=== PATIENT | female | born 1975 | race Caucasian/White ===

== ENCOUNTER 2022-12-19 14:52 | Observation (INO) | payer BC ==
[2022-12-19] MEDS ORDERED: SODIUM CHLORIDE 0.9% 1,000 ML IV STA (15:24)
[2022-12-19 16:00] LABS: ALT 21 U/L (4-34); AST 28 U/L (14-36); African American GFR (CKD) >90 (>60 ml/min/1.73 sqM); Albumin 4.2 g/dL (3.5-5.0); Anion Gap 10 mmol/L; Blood Urea Nitrogen 11 mg/dL (7-17); Calcium 9.1 mg/dL (8.4-10.2); Carbon Dioxide 22 mmol/L (22-30); Chloride 103 mmol/L (98-107); Glucose 420 mg/dL (74-99); Magnesium 1.8 mg/dL (1.6-2.3); Non-African American GFR(CKD) >90 (>60 ml/min/1.73 sqM); Phosphorus 3.3 mg/dL (2.5-4.5); Potassium 4.9 mmol/L (3.5-5.1); Sodium 135 mmol/L (137-145); Total Bilirubin 0.6 mg/dL (0.2-1.3); Total Protein 7.9 g/dL (6.3-8.2)
[2022-12-19 16:09] LABS: VBG PH 7.43 (7.31-7.41)
[2022-12-19 16:11] LABS: Basophils % (A) 0 %; Eosinophils # (A) 0.4 k/uL (0-0.7); Eosinophils % (A) 5 %; HCT 44.7 % (34.0-46.0); HGB 14.9 gm/dL (11.4-16.0); Lymphocytes # (A) 1.9 k/uL (1.0-4.8); Lymphocytes % (A) 25 %; MCH 25.5 pg (25.0-35.0); MCHC 33.2 g/dL (31.0-37.0); MCV 76.8 fL (80.0-100.0); Mean Platelet Volume 7.5; Monocytes # (A) 0.3 k/uL (0-1.0); Monocytes % (A) 4 %; Neutrophils % (A) 64 %; Platelet Count 299 k/uL (150-450); RBC 5.83 m/uL (3.80-5.40); RDW 13.6 % (11.5-15.5); WBC 7.8 k/uL (3.8-10.6)
[2022-12-19 16:20] LABS: Appearance,Urine Clear (Clear); Bilirubin,Urine Negative (Negative); Blood,Urine Negative (Negative); Color,Urine Light Yellow; Glucose,Urine (UA) 4+ (Negative); Ketones,Urine Negative (Negative); Leukocyte Esterase,Urine Negative (Negative); Nitrite,Urine Negative (Negative); PH, Urine 5.5 (5.0-8.0); Protein,Urine Negative (Negative); Specific Gravity,Urine 1.042 (1.001-1.035); Urobilinogen,Urine <2.0 mg/dL (<2.0)
[2022-12-19 16:21] LABS: Alkaline Phosphatase 65 U/L (38-126)
[2022-12-19] MEDS ORDERED: FLUCONAZOLE 150 MG TAB PO STA (16:36)
[2022-12-19] MEDS ORDERED: INSULIN REGULAR 100 UNIT/ML VIAL (IV) IV ONE ×2 (16:48→17:39)
--- NOTE | 2022-12-19 16:50 | ED ---
Recheck HPI - General Chief Complaint: Recheck/Abnormal Lab/Rx Stated Complaint: Recheck Time Seen by Provider: 12/19/22 15:15 Source: patient, RN notes reviewed Mode of arrival: ambulatory Limitations: no limitations - History of Present Illness Initial Comments: This is a 47-year-old female who presents to the emergency department for elevated blood sugar. States that she went to urgent care today for a yeast infection. When her urine was checked, it was found to have glucose in it. They subsequently checked her blood sugar, which was found to be 461, followed by her A1c, which was 13.9. She has never been diagnosed with diabetes, however she has not had any blood work done in several years. She does have problems with frequent yeast infections, and states that she has white discharge, pain, and swelling to the vulvar area. This has been present for 1-2 days. Denies any increased urination but states that she does seem thirsty quite a lot. She does not currently have a primary care provider. Denies any fevers, chills, sore throat, cough, dyspnea, chest pain, palpitations, abdominal pain, nausea, vomiting, diarrhea, back pain, or headaches. MD Complaint: abnormal lab - Related Data Home Medications Medication Instructions Recorded Confirmed Cetirizine HCl [Zyrtec] 10 mg PO HS 12/19/22 12/19/22 Docusate [Colace] 100 mg PO HS 12/19/22 12/19/22 L.acidoph,Paracasei, B.lactis 1 cap PO HS 12/19/22 12/19/22 [Probiotic] Naproxen Sodium [Aleve] 220 mg PO HS 12/19/22 12/19/22 Omeprazole Magnesium [PriLOSEC OTC] 20 mg PO HS 12/19/22 12/19/22 Otc Sleep Aid (Unknown) 1 cap PO HS 12/19/22 12/19/22 Allergies Allergy/AdvReac Type Severity Reaction Status Date / Time amoxicillin [From Augmentin] Allergy Unknown Verified 12/19/22 16:33 clavulanic acid Allergy Unknown Verified 12/19/22 16:33 [From Augmentin] latex Allergy Unknown Verified 12/19/22 16:33 Review of Systems ROS Statement: Those systems with pertinent positive or pertinent negative responses have been documented in the HPI. ROS Other: All systems not noted in ROS Statement are negative. Past Medical History Past Medical History: GERD/Reflux History of Any Multi-Drug Resistant Organisms: None Reported Past Surgical History: Breast Surgery, Tonsillectomy Additional Past Surgical History / Comment(s): D&C Past Psychological History: No Psychological Hx Reported Smoking Status: Never smoker Past Alcohol Use History: None Reported Past Drug Use History: None Reported General Exam Limitations: no limitations General appearance: alert, in no apparent distress Head exam: Present: atraumatic, normocephalic, normal inspection Respiratory exam: Present: normal lung sounds bilaterally. Absent: respiratory distress, wheezes, rales, rhonchi, stridor Cardiovascular Exam: Present: regular rate, normal rhythm, normal heart sounds. Absent: systolic murmur, diastolic murmur, rubs, gallop, clicks Neurological exam: Present: alert, oriented X3, CN II-XII intact Psychiatric exam: Present: normal affect, normal mood Skin exam: Present: warm, dry, intact, normal color. Absent: rash Course Vital Signs 12/19/22 14:59 Temperature 98.1 F Pulse Rate 104 H Respiratory 18 Rate Blood Pressure 157/99 O2 Sat by Pulse 97 Oximetry Medical Decision Making - Medical Decision Making This is a 47-year-old female who presents to the emergency department for hyperglycemia. Was pt. sent in by a medical professional or institution? @ -Urgent Care Did you speak to anyone other than the patient for history? @ -No Did you review nursing and triage notes? @ -Yes, and I agree, it is accurate with regards to the patient's symptoms. Were old charts reviewed? @ -No Differential Diagnosis? @ -Not applicable EKG interpreted by me (3pts min.)? @ -Not obtained X-rays interpreted by me (1pt min.)? @ -Not obtained CT interpreted by me (1pt min.)? @ -Not obtained U/S interpreted by me (1pt. min.)? @ -Not obtained What testing was considered but not performed? (CT, X-rays, U/S, labs)? Why? @ -None What meds were considered but not given? Why? @ -None Did you discuss the management of the patient with other professionals? @ -Yes, Dr. Duarte who accepts the patient for admission. Did you reconcile home meds? @ -No Was smoking cessation discussed for >3mins.? @ -No Was critical care preformed (if so, how long)? @ -No Were there social determinants of health that impacted care today? How? (Homelessness, low income, unemployed, alcoholism, drug addiction, transportation, low edu. Level, literacy, decrease access to med. care, [facility], rehab)? @ -No Was there de-escalation of care discussed even if they declined? (Discuss DNR or withdrawal of care, Hospice)? @ -No What co-morbidities impacted this encounter? (DM, HTN, Smoking, COPD, CAD, Ca ncer, CVA, Hep., AIDS, mental health diagnosis, sleep apnea, morbid obesity)? @ -Morbid obesity Was patient admitted / discharged? @ -Admitted. Lab work obtained revealing a blood sugar of 420. Patient's lab work does not suggest DKA. Urine ketones are negative and the pH is 7.43. She was given a liter bolus of IV fluids and 8 units of insulin initially. Blood sugar reduced to 341. She was subsequently given another 8 units of insulin and sugar reduced to 322. She was also given a dose of Diflucan for the yeast infection. Case discussed with Dr. Campos, who advised admission given that the sugar remains at 322 after 16 units of insulin, and because the patient does not have a primary care provider for close follow-up. Patient admitted to medicine for further management of new onset diabetes. Undiagnosed new problem with uncertain prognosis? @ -None Drug Therapy requiring intensive monitoring for toxicity (Heparin, Nitro, Insulin, Cardizem)? @ -None Were any procedures done? @ -None Diagnosis/symptom? @ -New onset diabetes mellitus Acute, or Chronic, or Acute on Chronic? @ -Acute Uncomplicated (without systemic symptoms) or Complicated (systemic symptoms)? @ -Complicated Side effects of treatment? @ -None Exacerbation, Progression, or Severe Exacerbation] @ -Not applicable Poses a threat to life or bodily function? @ -Yes This case was discussed in detail with the attending ED physician, Dr. Campos. Presentation, findings, and treatment plan discussed in detail as well. - Lab Data Result diagrams: 12/19/22 15:49 12/19/22 15:30 Lab Results 12/19/22 12/19/22 12/19/22 Range/Units 15:30 15:30 15:30 WBC (3.8-10.6) k/uL RBC (3.80-5.40) m/uL Hgb (11.4-16.0) gm/dL Hct (34.0-46.0) % MCV (80.0-100.0) fL MCH (25.0-35.0) pg MCHC (31.0-37.0) g/dL RDW (11.5-15.5) % Plt Count (150-450) k/uL MPV Neutrophils % % Lymphocytes % % Monocytes % % Eosinophils % % Basophils % % Neutrophils # (1.3-7.7) k/uL Lymphocytes # (1.0-4.8) k/uL Monocytes # (0-1.0) k/uL Eosinophils # (0-0.7) k/uL Basophils # (0-0.2) k/uL VBG pH (7.31-7.41) VBG pCO2 (37-51) mmHg VBG HCO3 (24-28) mmol/L Sodium 135 L (137-145) mmol/L Potassium 4.9 (3.5-5.1) mmol/L Chloride 103 (98-107) mmol/L Carbon Dioxide 22 (22-30) mmol/L Anion Gap 10 mmol/L BUN 11 (7-17) mg/dL Creatinine 0.55 (0.52-1.04) mg/dL Est GFR (CKD-EPI)AfAm >90 (>60 ml/min/1.73 sqM) Est GFR (CKD-EPI)NonAf >90 (>60 ml/min/1.73 sqM) Glucose 420 H (74-99) mg/dL POC Glucose (mg/dL) (70-110) mg/dL POC Glu Fine Craft Artist ID Plasma Lactic Acid Jose 1.2 (0.7-2.0) mmol/L Calcium 9.1 (8.4-10.2) mg/dL Phosphorus 3.3 (2.5-4.5) mg/dL Magnesium 1.8 (1.6-2.3) mg/dL Total Bilirubin 0.6 (0.2-1.3) mg/dL AST 28 (14-36) U/L ALT 21 (4-34) U/L Alkaline Phosphatase 65 (38-126) U/L Total Protein 7.9 (6.3-8.2) g/dL Albumin 4.2 (3.5-5.0) g/dL Urine Color Light Yellow Urine Appearance Clear (Clear) Urine pH 5.5 (5.0-8.0) Ur Specific [place] 1.042 H (1.001-1.035) Urine Protein Negative (Negative) Urine Glucose (UA) 4+ H (Negative) Urine Ketones Negative (Negative) Urine Blood Negative (Negative) Urine Nitrite Negative (Negative) Urine Bilirubin Negative (Negative) Urine Urobilinogen <2.0 (<2.0) mg/dL Ur Leukocyte Esterase Negative (Negative) 12/19/22 12/19/22 12/19/22 Range/Units 15:49 15:49 17:38 WBC 7.8 (3.8-10.6) k/uL RBC 5.83 H (3.80-5.40) m/uL Hgb 14.9 (11.4-16.0) gm/dL Hct 44.7 (34.0-46.0) % MCV 76.8 L (80.0-100.0) fL MCH 25.5 (25.0-35.0) pg MCHC 33.2 (31.0-37.0) g/dL RDW 13.6 (11.5-15.5) % Plt Count 299 (150-450) k/uL MPV 7.5 Neutrophils % 64 % Lymphocytes % 25 % Monocytes % 4 % Eosinophils % 5 % Basophils % 0 % Neutrophils # 5.0 (1.3-7.7) k/uL Lymphocytes # 1.9 (1.0-4.8) k/uL Monocytes # 0.3 (0-1.0) k/uL Eosinophils # 0.4 (0-0.7) k/uL Basophils # 0.0 (0-0.2) k/uL VBG pH 7.43 H (7.31-7.41) VBG pCO2 31 L (37-51) mmHg VBG HCO3 20 L (24-28) mmol/L Sodium (137-145) mmol/L Potassium (3.5-5.1) mmol/L Chloride (98-107) mmol/L Carbon Dioxide (22-30) mmol/L Anion Gap mmol/L BUN (7-17) mg/dL Creatinine (0.52-1.04) mg/dL Est GFR (CKD-EPI)AfAm (>60 ml/min/1.73 sqM) Est GFR (CKD-EPI)NonAf (>60 ml/min/1.73 sqM) Glucose (74-99) mg/dL POC Glucose (mg/dL) 341 H (70-110) mg/dL POC Glu Fine Craft Artist ID December, Plasma Lactic Acid Jose (0.7-2.0) mmol/L Calcium (8.4-10.2) mg/dL Phosphorus (2.5-4.5) mg/dL Magnesium (1.6-2.3) mg/dL Total Bilirubin (0.2-1.3) mg/dL AST (14-36) U/L ALT (4-34) U/L Alkaline Phosphatase (38-126) U/L Total Protein (6.3-8.2) g/dL Albumin (3.5-5.0) g/dL Urine Color Urine Appearance (Clear) Urine pH (5.0-8.0) Ur Specific [place] (1.001-1.035) Urine Protein (Negative) Urine Glucose (UA) (Negative) Urine Ketones (Negative) Urine Blood (Negative) Urine Nitrite (Negative) Urine Bilirubin (Negative) Urine Urobilinogen (<2.0) mg/dL Ur Leukocyte Esterase (Negative) 12/19/22 Range/Units 18:27 WBC (3.8-10.6) k/uL RBC (3.80-5.40) m/uL Hgb (11.4-16.0) gm/dL Hct (34.0-46.0) % MCV (80.0-100.0) fL MCH (25.0-35.0) pg MCHC (31.0-37.0) g/dL RDW (11.5-15.5) % Plt Count (150-450) k/uL MPV Neutrophils % % Lymphocytes % % Monocytes % % Eosinophils % % Basophils % % Neutrophils # (1.3-7.7) k/uL Lymphocytes # (1.0-4.8) k/uL Monocytes # (0-1.0) k/uL Eosinophils # (0-0.7) k/uL Basophils # (0-0.2) k/uL VBG pH (7.31-7.41) VBG pCO2 (37-51) mmHg VBG HCO3 (24-28) mmol/L Sodium (137-145) mmol/L Potassium (3.5-5.1) mmol/L Chloride (98-107) mmol/L Carbon Dioxide (22-30) mmol/L Anion Gap mmol/L BUN (7-17) mg/dL Creatinine (0.52-1.04) mg/dL Est GFR (CKD-EPI)AfAm (>60 ml/min/1.73 sqM) Est GFR (CKD-EPI)NonAf (>60 ml/min/1.73 sqM) Glucose (74-99) mg/dL POC Glucose (mg/dL) 322 H (70-110) mg/dL POC Glu Fine Craft Artist ID December, Plasma Lactic Acid Jose (0.7-2.0) mmol/L Calcium (8.4-10.2) mg/dL Phosphorus (2.5-4.5) mg/dL Magnesium (1.6-2.3) mg/dL Total Bilirubin (0.2-1.3) mg/dL AST (14-36) U/L ALT (4-34) U/L Alkaline Phosphatase (38-126) U/L Total Protein (6.3-8.2) g/dL Albumin (3.5-5.0) g/dL Urine Color Urine Appearance (Clear) Urine pH (5.0-8.0) Ur Specific [place] (1.001-1.035) Urine Protein (Negative) Urine Glucose (UA) (Negative) Urine Ketones (Negative) Urine Blood (Negative) Urine Nitrite (Negative) Urine Bilirubin (Negative) Urine Urobilinogen (<2.0) mg/dL Ur Leukocyte Esterase (Negative) Disposition Clinical Impression: New onset type 2 diabetes mellitus, Vaginal yeast infection Disposition: ADMITTED IP TO THIS HOSP Referrals: Huseyin Wong MD [REFERRING] - 1-2 days (Contact regarding appointment with automotive engineering teacher) None,Stated [Primary Care Provider] - 1-2 days Forms: [facility] PCPs
[2022-12-19 17:39] LABS: Glucose,Whole Blood 341 mg/dL (70-110)
[2022-12-19 18:28] LABS: Glucose,Whole Blood 322 mg/dL (70-110)
[2022-12-19] MEDS ORDERED: ACETAMINOPHEN TAB 325 MG TAB PO PRN (18:37)
[2022-12-19] MEDS ORDERED: NALOXONE 0.4 MG/ML 1 ML VIAL IV PRN (18:37)
[2022-12-19] MEDS ORDERED: ONDANSETRON 4 MG/2 ML VIAL IVP PRN (18:37)
[2022-12-19] MEDS ORDERED: MELATONIN 3 MG TABLET PO PRN (18:50)
[2022-12-19] MEDS ORDERED: IBUPROFEN 600 MG TAB PO PRN (18:52)
[2022-12-19 21:27] LABS: Glucose,Whole Blood 288 mg/dL (70-110)
[2022-12-19] MEDS: HYDROcodone/APAP 5-325MG 1 EACH TAB PO PRN (22:36)
[2022-12-19] MEDS: PANTOPRAZOLE 40 MG TABLET PO SCH (22:39)
[2022-12-19] MEDS: DOCUSATE 100 MG CAP PO SCH (22:39)
[2022-12-19] MEDS: LACTOBACILLUS ACIDOPH & BULGAR 1 EACH PACKET PO SCH (23:43)
[2022-12-19] MEDS: NAPROXEN 250 MG TAB PO SCH (23:44)
[2022-12-19] MEDS: LORATADINE 10 MG TAB PO SCH (23:44)
--- NOTE | 2022-12-20 00:15 | P.HPIM ---
History of Present Illness H&P Date: 12/19/22 The patient is a 47-year-old female with no known PMH who presents to the emergency room from an urgent care due to concern for newly diagnosed diabetes mellitus. The patient reports that she was seen at the urgent care earlier today due to persistent yeast infections. While there, UA revealed significant glucose, with CBG 461 and A1c 13.9. The patient reports that she has not seen a physician in more than 5 years. She also reports feeling fatigued most of the day and burning and pain in both her feet especially at night. In the emergency room, laboratory evaluation revealed a glucose of 420, sodium 135, lactic acid 1.2, and a UA with 4+ glucose and acetone negative. ED documentation reviewed and case discussed with ED provider. Review of systems: Pertinent positives and negatives as discussed in HPI, a complete review of systems was performed and all other systems are negative. Physical examination: Vital signs reviewed General: non toxic, no distress, appears at stated age, morbidly obese Derm: no unusual rashes/lesions, warm Head: atraumatic, normocephalic, symmetric Eyes: EOMI, no lid lag, anicteric sclera, pupils equal round reactive to light ENT: Nose and ears atraumatic Neck: No cervical lymphadenopathy, trachea midline, supple Mouth: no lip lesion, mucus membranes moist Cardiovascular: S1S2 reg, no murmur, positive dorsalis pedis pulse bilateral, no edema Lungs: CTA bilateral, no rhonchi, no rales, no accessory muscle use Abdominal: soft, nontender to palpation, no guarding Ext: muscle strength 5 out of 5 in all 4 extremities grossly, no gross muscle atrophy, no contractures, Neuro: CN II-XI grossly intact, no gross focal neuro deficits Psych: Alert, oriented, appropriate affect Assessment: Newly diagnosed diabetes mellitus Imaging: None performed Data Review: Laboratory evaluation revealed a glucose of 420, sodium 135, lactic acid 1.2, and a UA with 4+ glucose and acetone negative Plan: Start Levemir 10 units daily at bedtime with insulin sliding scale and blood glucose monitoring Patient will need diabetes education CAR[employer]AN consult for yeast infection DVT prophylaxis: Heparin subcu The patient is admitted with an anticipated less than 2 midnight stay for evaluation of Type 2 dm CODE STATUS: Full Code Discussed with: Patient Anticipated discharge place: Home Past Medical History Past Medical History: GERD/Reflux History of Any Multi-Drug Resistant Organisms: None Reported Past Surgical History: Breast Surgery, Tonsillectomy Additional Past Surgical History / Comment(s): D&C Past Psychological History: No Psychological Hx Reported Smoking Status: Never smoker Past Alcohol Use History: None Reported Past Drug Use History: None Reported Medications and Allergies Home Medications Medication Instructions Recorded Confirmed Type Cetirizine HCl [Zyrtec] 10 mg PO HS 12/19/22 12/19/22 History Docusate [Colace] 100 mg PO HS 12/19/22 12/19/22 History L.acidoph,Paracasei, B.lactis 1 cap PO HS 12/19/22 12/19/22 History [Probiotic] Naproxen Sodium [Aleve] 220 mg PO HS 12/19/22 12/19/22 History Omeprazole Magnesium [PriLOSEC OTC] 20 mg PO HS 12/19/22 12/19/22 History Otc Sleep Aid (Unknown) 1 cap PO HS 12/19/22 12/19/22 History Allergies Allergy/AdvReac Type Severity Reaction Status Date / Time amoxicillin [From Augmentin] Allergy Unknown Verified 12/19/22 16:33 clavulanic acid Allergy Unknown Verified 12/19/22 16:33 [From Augmentin] latex Allergy Unknown Verified 12/19/22 16:33 Physical Exam Vitals: Vital Signs Temp Pulse Pulse Resp BP BP Pulse Ox 12/19/22 21:32 98.5 F 93 18 147/97 12/19/22 18:48 96 18 150/92 98 12/19/22 14:59 98.1 F 104 H 18 157/99 97 Intake and Output 12/19/22 12/19/22 12/20/22 14:59 22:59 06:59 Other: Weight 142.882 kg Results CBC & Chem 7: 12/19/22 15:49 12/19/22 15:30 Labs: Abnormal Lab Results - Last 24 Hours (Table) 12/19/22 12/19/22 12/19/22 Range/Units 15:30 15:30 15:49 RBC (3.80-5.40) m/uL MCV (80.0-100.0) fL VBG pH 7.43 H (7.31-7.41) VBG pCO2 31 L (37-51) mmHg VBG HCO3 20 L (24-28) mmol/L Sodium 135 L (137-145) mmol/L Glucose 420 H (74-99) mg/dL POC Glucose (mg/dL) (70-110) mg/dL Ur Specific [place] 1.042 H (1.001-1.035) Urine Glucose (UA) 4+ H (Negative) 12/19/22 12/19/22 12/19/22 Range/Units 15:49 17:38 18:27 RBC 5.83 H (3.80-5.40) m/uL MCV 76.8 L (80.0-100.0) fL VBG pH (7.31-7.41) VBG pCO2 (37-51) mmHg VBG HCO3 (24-28) mmol/L Sodium (137-145) mmol/L Glucose (74-99) mg/dL POC Glucose (mg/dL) 341 H 322 H (70-110) mg/dL Ur Specific [place] (1.001-1.035) Urine Glucose (UA) (Negative) 12/19/22 Range/Units 21:26 RBC (3.80-5.40) m/uL MCV (80.0-100.0) fL VBG pH (7.31-7.41) VBG pCO2 (37-51) mmHg VBG HCO3 (24-28) mmol/L Sodium (137-145) mmol/L Glucose (74-99) mg/dL POC Glucose (mg/dL) 288 H (70-110) mg/dL Ur Specific [place] (1.001-1.035) Urine Glucose (UA) (Negative)
[2022-12-20] MEDS: INSULIN DETEMIR (LEVEMIR) 100 UNIT/ML SYR SQ SCH ×2 (01:26→20:36)
[2022-12-20 02:27] LABS: Chol/HDL Ratio 6.65 Ratio; LDL Cholesterol,Calculated 154.1 mg/dL (0.0-131.0)
[2022-12-20 06:17] LABS: Glucose,Whole Blood 266 mg/dL (70-110)
[2022-12-20] MEDS: INSULIN ASPART (NovoLOG) 100 UNIT/ML VIAL SQ SCH ×5 (06:33→21:21)
[2022-12-20] MEDS: HEPARIN SODIUM,PORCINE/PF 5,000 UNIT/0.5 ML SYRINGE SQ SCH ×3 (08:14→23:07)
[2022-12-20] MEDS: HYDROcodone/APAP 5-325MG 1 EACH TAB PO PRN ×3 (08:23→20:36)
[2022-12-20] MEDS ORDERED: VITS A & D-WHITE PET-LANOLIN 5 GM OINT.PACK TOPICAL ONE (09:06)
[2022-12-20 09:30] LABS: African American GFR (CKD) >90 (>60 ml/min/1.73 sqM); Anion Gap 8 mmol/L; Blood Urea Nitrogen 11 mg/dL (7-17); Calcium 8.5 mg/dL (8.4-10.2); Carbon Dioxide 22 mmol/L (22-30); Chloride 105 mmol/L (98-107); Glucose 265 mg/dL (74-99); Magnesium 1.7 mg/dL (1.6-2.3); Non-African American GFR(CKD) >90 (>60 ml/min/1.73 sqM); Potassium 4.3 mmol/L (3.5-5.1); Sodium 135 mmol/L (137-145)
--- NOTE | 2022-12-20 09:45 | P.OBCN ---
History of Present Illness Consult date: 12/20/22 Requesting physician: Festus Enciso Reason for consult: other (Yeast infection) Chief complaint: Vulvar yeast infection History of present illness: This is a 47 y.o. female, 0, who presented to ER with complaints of vaginal burning, itching, irritation and new onset of urinary incontinence. She was newly diagnosed with diabetes and is currently on insulin. She states she has been having yeast infection symptoms since about June when she went to an urgent care and was given Diflucan. She states symptoms improved for about a week and then have continually returned. She has used Monistat with some relief, but symptoms return a few days after finishing treatment. She was given 1 dose of fluconazole yesterday on admission. She has not noticed much relief yet, but she's not having the incontinence anymore. Blood sugar on admission was 460 and is now down to 260 today. 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 Menses are currently lasting 3-4 days and less heavy than they used to be. States she has always had irregular cycles and has sometimes gone up to 2 years without a period. She has had at least 4 D&Cs for irregular bleeding and thickened endometrial lining probably at least 10 years ago. She thinks her last pap was about 6 year ago and was normal. OB Hx: G0. Review of Systems Constitutional: Denies chills, Denies fever Genitourinary: Reports dysuria (pain when urine hits skin), Reports genital sores (cracks in skin), Reports mixed incontinence, Reports vaginal itching Past Medical History Past Medical History: GERD/Reflux Additional Past Medical History / Comment(s): PCOS History of Any Multi-Drug Resistant Organisms: None Reported Past Surgical History: Breast Surgery (I&D for bad infection), Tonsillectomy Additional Past Surgical History / Comment(s): D&C x 4 Past Psychological History: No Psychological Hx Reported Smoking Status: Never smoker Past Alcohol Use History: Rare Past Drug Use History: None Reported Medications and Allergies Home Medications Medication Instructions Recorded Confirmed Type Cetirizine HCl [Zyrtec] 10 mg PO HS 12/19/22 12/19/22 History Docusate [Colace] 100 mg PO HS 12/19/22 12/19/22 History L.acidoph,Paracasei, B.lactis 1 cap PO HS 12/19/22 12/19/22 History [Probiotic] Naproxen Sodium [Aleve] 220 mg PO HS 12/19/22 12/19/22 History Omeprazole Magnesium [PriLOSEC OTC] 20 mg PO HS 12/19/22 12/19/22 History Otc Sleep Aid (Unknown) 1 cap PO HS 12/19/22 12/19/22 History Atorvastatin [Lipitor] 40 mg PO DAILY 30 Days #30 tab 12/20/22 Rx Semaglutide [Rybelsus] 3 mg PO DAILY 30 Days #30 tab 12/20/22 Rx metFORMIN HCL [Glucophage] 500 mg PO BID 30 Days #60 tab 12/20/22 Rx Allergies Allergy/AdvReac Type Severity Reaction Status Date / Time amoxicillin [From Augmentin] Allergy Unknown Verified 12/19/22 16:33 clavulanic acid Allergy Unknown Verified 12/19/22 16:33 [From Augmentin] latex Allergy Unknown Verified 12/19/22 16:33 Exam Osteopathic Statement: *. No significant issues noted on an osteopathic structural exam other than those noted in the History and Physical/Consult. Vital Signs Temp Pulse Pulse Resp BP BP Pulse Ox 12/20/22 06:35 97.7 F 79 16 142/84 97 12/20/22 02:00 97.5 F L 85 17 135/85 98 12/19/22 21:32 98.5 F 93 18 147/97 12/19/22 18:48 96 18 150/92 98 12/19/22 14:59 98.1 F 104 H 18 157/99 97 Intake and Output 12/19/22 12/20/22 12/20/22 22:59 06:59 14:59 Other: # Voids 2 Weight 142.882 kg - OBG Physical Exam Vulva: Swollen, slightly red, inflammed with some cracks in skin creases and perineum, some white discharge Results Result Diagrams: 12/19/22 15:49 12/20/22 08:39 Abnormal Lab Results - Last 24 Hours (Table) 12/19/22 12/19/22 12/19/22 Range/Units 15:30 15:30 15:49 RBC (3.80-5.40) m/uL MCV (80.0-100.0) fL VBG pH 7.43 H (7.31-7.41) VBG pCO2 31 L (37-51) mmHg VBG HCO3 20 L (24-28) mmol/L Sodium 135 L (137-145) mmol/L Glucose 420 H (74-99) mg/dL POC Glucose (mg/dL) (70-110) mg/dL Hemoglobin A1c (0.0-6.0) % Triglycerides (0.00-149.00) mg/dL Cholesterol (0.00-200.00) mg/dL LDL Cholesterol, Calc (0.0-131.0) mg/dL VLDL Cholesterol, Calc (5.00-40.00) mg/dL HDL Cholesterol (40.00-60.00) mg/dL Ur Specific [place] 1.042 H (1.001-1.035) Urine Glucose (UA) 4+ H (Negative) 12/19/22 12/19/22 12/19/22 Range/Units 15:49 15:50 17:38 RBC 5.83 H (3.80-5.40) m/uL MCV 76.8 L (80.0-100.0) fL VBG pH (7.31-7.41) VBG pCO2 (37-51) mmHg VBG HCO3 (24-28) mmol/L Sodium (137-145) mmol/L Glucose (74-99) mg/dL POC Glucose (mg/dL) 341 H (70-110) mg/dL Hemoglobin A1c 13.3 H (0.0-6.0) % Triglycerides (0.00-149.00) mg/dL Cholesterol (0.00-200.00) mg/dL LDL Cholesterol, Calc (0.0-131.0) mg/dL VLDL Cholesterol, Calc (5.00-40.00) mg/dL HDL Cholesterol (40.00-60.00) mg/dL Ur Specific [place] (1.001-1.035) Urine Glucose (UA) (Negative) 12/19/22 12/19/22 12/19/22 Range/Units 18:27 20:27 21:26 RBC (3.80-5.40) m/uL MCV (80.0-100.0) fL VBG pH (7.31-7.41) VBG pCO2 (37-51) mmHg VBG HCO3 (24-28) mmol/L Sodium (137-145) mmol/L Glucose (74-99) mg/dL POC Glucose (mg/dL) 322 H 288 H (70-110) mg/dL Hemoglobin A1c (0.0-6.0) % Triglycerides 266.00 H (0.00-149.00) mg/dL Cholesterol 244.00 H (0.00-200.00) mg/dL LDL Cholesterol, Calc 154.1 H (0.0-131.0) mg/dL VLDL Cholesterol, Calc 53.20 H (5.00-40.00) mg/dL HDL Cholesterol 36.70 L (40.00-60.00) mg/dL Ur Specific [place] (1.001-1.035) Urine Glucose (UA) (Negative) 12/20/22 12/20/22 Range/Units 06:16 08:39 RBC (3.80-5.40) m/uL MCV (80.0-100.0) fL VBG pH (7.31-7.41) VBG pCO2 (37-51) mmHg VBG HCO3 (24-28) mmol/L Sodium 135 L (137-145) mmol/L Glucose 265 H (74-99) mg/dL POC Glucose (mg/dL) 266 H (70-110) mg/dL Hemoglobin A1c (0.0-6.0) % Triglycerides (0.00-149.00) mg/dL Cholesterol (0.00-200.00) mg/dL LDL Cholesterol, Calc (0.0-131.0) mg/dL VLDL Cholesterol, Calc (5.00-40.00) mg/dL HDL Cholesterol (40.00-60.00) mg/dL Ur Specific [place] (1.001-1.035) Urine Glucose (UA) (Negative) Assessment and Plan (1) Vulvovaginal candidiasis Current Visit: Yes Status: Acute Code(s): B37.31 - ACUTE CANDIDIASIS OF VULVA AND VAGINA SNOMED Code(s): 15064969 Plan: I recommended Vitamin A&D ointment or similar to skin cracks to help them heal and prevent burning when she urinates. Will add topical antifungal to external vulva/inner thigh area. Advised we can repeat fluconazole in 3 days if she's still having symptoms. Advised once her sugars are better controlled, her yeast infections should also improve. Discussed importance of good glycemic control to help prevent yeast infections. Thank you for this consultation. I will be out of town starting early tomorrow morning through the holiday weekend. Please contact my office for on-call physician if any further intervention needed.
[2022-12-20] MEDS: MICONAZOLE NITRATE 2% CREAM 14 GM TUBE TOPICAL SCH ×2 (09:48→21:22)
[2022-12-20] MEDS: ATORVASTATIN 40 MG TAB PO SCH (09:48)
[2022-12-20 11:16] LABS: Glucose,Whole Blood 231 mg/dL (70-110)
[2022-12-20 15:57] VITALS: BMI 47.9
[2022-12-20 16:40] LABS: Glucose,Whole Blood 218 mg/dL (70-110)
[2022-12-20] MEDS ORDERED: ASPIRIN-ACET-CAFF 250-250-65MG 1 EACH TAB PO STA (17:14)
[2022-12-20] MEDS ORDERED: PROCHLORPERAZINE INJ 10 MG/2 ML VIAL IVP STA (17:15)
[2022-12-20] MEDS ORDERED: KETOROLAC 15 MG/ML 1 ML VIAL IVP STA (17:15)
[2022-12-20] MEDS ORDERED: diphenhydrAMINE 50 MG/ML 1 ML VIAL IVP STA (17:15)
--- NOTE | 2022-12-20 17:32 | P.PN ---
Subjective Progress Note Date: 12/20/22 Hospital course: Patient is a very pleasant 47-year-old female with no previous known past medical history. She presented to the emergency department from urgent care secondary to concerns of newly diagnosed diabetes mellitus. Patient reports she initially presented to the urgent care secondary to persistent yeast infections and when they are she was informed her blood glucose was 461 and she needed to go to the emergency department for evaluation. Upon arrival to the emergency department patient underwent full evaluation. Labs completed and reviewed. CBC showing no significant abnormalities. VBG showing a pH of 7.43, pCO2 of 31, and a bicarb of 20. BMP unremarkable with the exception of hyperglycemia with glucose of 420. Lactic acid 1.2. Urinalysis was positive for glucose negative for ketones or blood. Acetone was negative. Patient was admitted under our services to observation unit for newly diagnosed diabetes mellitus and persistent vulvovaginal candidiasis. The contact clerk was consulted for persistent and recurrent vulvovaginal candidiasis. Patient was started on Levemir 10 units daily along with NovoLog sliding scale. Blood glucose levels improving overnight with morning glucose of 265. Physical exam: Vital signs reviewed and stable. General: Nontoxic, no distress and appears stated age. Obese. Derm: Skin warm and dry, normal coloration for ethnicity. Head: Atraumatic, normocephalic and symmetric. Eyes: EOMs intact, no lid lag, and anicteric sclera Mouth: no lip lesions, mucus membranes moist Cardiovascular: regular rate and rhythm with normal S1S2, no murmur, positive posterior tibial pulses bilaterally, and cap refill < 2 seconds. Lungs: Respirations even, regular, and unlabored on room air. Lungs CTA bilaterally, no rhonchi, no rales, no wheezing, and no accessory muscle usage. Abdominal/GI: Obese abdomen soft, nontender to palpation, no guarding, no appreciable organomegaly. Ext: ROM intact. No gross muscle atrophy, no edema, no contractures Neuro: Speech clear, face symmetrical and CN II-XII grossly intact with no noted focal neuro deficits Psych: Alert and oriented to person, place, time, and situation. Appropriate and pleasant affect. Assessment and Plan of Care: Newly diagnosed type 2 diabetes mellitus with hyperglycemia -Hemoglobin A1c resulting at 13.3%. -Prescription sent for metformin 500 mg twice a day and Semaglutide 3 mg daily to pharmacy, per case management patient requires preauthorization and preauthorization sent for these medications. If patient does not receive authorization from insurance company she will need to be discharged on insulin secondary to her hemoglobin A1c of 13.3%. -Patient was started on Levemir 10 units daily along with NovoLog sliding scale and Blood glucose levels improving overnight with morning glucose of 265. -Extensive diabetes education provided and discussed with both patient and patient's . Persistent and recurrent vulvovaginal candidiasis -Likely resulting from uncontrolled/unmanaged hyperglycemia resulting from diabetes mellitus. Patient is newly diagnosed diabetic. -The contact clerk was consulted for persistent and recurrent vulvovaginal candidiasis. -Patient received one dose of Diflucan 150 mg and will plan to repeat every 72 hours 3 doses for recurrent vulvovaginal candidiasis. Hyperlipidemia, newly diagnosed -Lipid profile showing triglycerides of 266, total cholesterol 244, LDL of 154, VLDL of 53.20 and low HDL of 36.7. -Patient started on atorvastatin 40 mg daily. Morbid obesity with BMI of 47.9 kg/m -Recommend outpatient structured weight loss program CODE STATUS: Full code DVT prophylaxis: Heparin Discussed with: Patient, patient's , outsole caser and RN Anticipated discharge date: Likely tomorrow morning Anticipated discharge place: Home Patient was seen independently by Nurse Pracitioner. This document was prepared using [employer] dictation software. Please allow for errors in mushroom growth media mixer, while rare they do occur. Umesh Allen NP rendered care for this patient independently, reviewed the findings and plan as documented in the note above. I did not physically speak with or examine the patient on this date. Objective - Vital Signs Vital signs: Vital Signs Temp 97.7 F 12/20/22 06:35 Pulse 79 12/20/22 06:35 Resp 16 12/20/22 06:35 BP 142/84 12/20/22 06:35 Pulse Ox 97 12/20/22 06:35 FiO2 Intake & Output 12/19/22 12/20/22 12/20/22 18:59 06:59 18:59 Weight 142.882 kg 142.882 kg Other: # Voids 2 - Labs CBC & Chem 7: 12/19/22 15:49 12/20/22 08:39 Labs: Abnormal Lab Results - Last 24 Hours (Table) 12/19/22 12/19/22 12/19/22 Range/Units 15:30 15:30 15:49 RBC (3.80-5.40) m/uL MCV (80.0-100.0) fL VBG pH 7.43 H (7.31-7.41) VBG pCO2 31 L (37-51) mmHg VBG HCO3 20 L (24-28) mmol/L Sodium 135 L (137-145) mmol/L Glucose 420 H (74-99) mg/dL POC Glucose (mg/dL) (70-110) mg/dL Hemoglobin A1c (0.0-6.0) % Triglycerides (0.00-149.00) mg/dL Cholesterol (0.00-200.00) mg/dL LDL Cholesterol, Calc (0.0-131.0) mg/dL VLDL Cholesterol, Calc (5.00-40.00) mg/dL HDL Cholesterol (40.00-60.00) mg/dL Ur Specific [place] 1.042 H (1.001-1.035) Urine Glucose (UA) 4+ H (Negative) 12/19/22 12/19/22 12/19/22 Range/Units 15:49 15:50 17:38 RBC 5.83 H (3.80-5.40) m/uL MCV 76.8 L (80.0-100.0) fL VBG pH (7.31-7.41) VBG pCO2 (37-51) mmHg VBG HCO3 (24-28) mmol/L Sodium (137-145) mmol/L Glucose (74-99) mg/dL POC Glucose (mg/dL) 341 H (70-110) mg/dL Hemoglobin A1c 13.3 H (0.0-6.0) % Triglycerides (0.00-149.00) mg/dL Cholesterol (0.00-200.00) mg/dL LDL Cholesterol, Calc (0.0-131.0) mg/dL VLDL Cholesterol, Calc (5.00-40.00) mg/dL HDL Cholesterol (40.00-60.00) mg/dL Ur Specific [place] (1.001-1.035) Urine Glucose (UA) (Negative) 12/19/22 12/19/22 12/19/22 Range/Units 18:27 20:27 21:26 RBC (3.80-5.40) m/uL MCV (80.0-100.0) fL VBG pH (7.31-7.41) VBG pCO2 (37-51) mmHg VBG HCO3 (24-28) mmol/L Sodium (137-145) mmol/L Glucose (74-99) mg/dL POC Glucose (mg/dL) 322 H 288 H (70-110) mg/dL Hemoglobin A1c (0.0-6.0) % Triglycerides 266.00 H (0.00-149.00) mg/dL Cholesterol 244.00 H (0.00-200.00) mg/dL LDL Cholesterol, Calc 154.1 H (0.0-131.0) mg/dL VLDL Cholesterol, Calc 53.20 H (5.00-40.00) mg/dL HDL Cholesterol 36.70 L (40.00-60.00) mg/dL Ur Specific [place] (1.001-1.035) Urine Glucose (UA) (Negative) 12/20/22 Range/Units 06:16 RBC (3.80-5.40) m/uL MCV (80.0-100.0) fL VBG pH (7.31-7.41) VBG pCO2 (37-51) mmHg VBG HCO3 (24-28) mmol/L Sodium (137-145) mmol/L Glucose (74-99) mg/dL POC Glucose (mg/dL) 266 H (70-110) mg/dL Hemoglobin A1c (0.0-6.0) % Triglycerides (0.00-149.00) mg/dL Cholesterol (0.00-200.00) mg/dL LDL Cholesterol, Calc (0.0-131.0) mg/dL VLDL Cholesterol, Calc (5.00-40.00) mg/dL HDL Cholesterol (40.00-60.00) mg/dL Ur Specific [place] (1.001-1.035) Urine Glucose (UA) (Negative)
[2022-12-20] MEDS: MAGNESIUM SULFATE-D5W PMX 1 GM in DEXTROSE/WATER 1 100ML.BAG IVPB SCH ×2 (17:51→20:35)
[2022-12-20] MEDS: NAPROXEN 250 MG TAB PO SCH (20:35)
[2022-12-20] MEDS: LORATADINE 10 MG TAB PO SCH (20:35)
[2022-12-20] MEDS: DOCUSATE 100 MG CAP PO SCH (20:35)
[2022-12-20] MEDS: PANTOPRAZOLE 40 MG TABLET PO SCH (20:35)
[2022-12-20 21:16] LABS: Glucose,Whole Blood 269 mg/dL (70-110)
[2022-12-20] MEDS: LACTOBACILLUS ACIDOPH & BULGAR 1 EACH PACKET PO SCH (21:21)
[2022-12-21 03:42] VITALS: RESP 16
[2022-12-21 06:27] LABS: Glucose,Whole Blood 205 mg/dL (70-110)
[2022-12-21] MEDS: INSULIN ASPART (NovoLOG) 100 UNIT/ML VIAL SQ SCH ×2 (06:32→12:39)
[2022-12-21] MEDS: HEPARIN SODIUM,PORCINE/PF 5,000 UNIT/0.5 ML SYRINGE SQ SCH (08:06)
[2022-12-21] MEDS: MICONAZOLE NITRATE 2% CREAM 14 GM TUBE TOPICAL SCH (08:11)
[2022-12-21] MEDS: ATORVASTATIN 40 MG TAB PO SCH (08:11)
[2022-12-21 08:38] VITALS: BP 137/83; PULSE 94; TEMP 98.1
--- NOTE | 2022-12-21 10:02 | P.PN ---
Subjective Progress Note Date: 12/21/22 Hospital course: Patient is a very pleasant 47-year-old female with no previous known past medical history. She presented to the emergency department from urgent care secondary to concerns of newly diagnosed diabetes mellitus. Patient reports she initially presented to the urgent care secondary to persistent yeast infections and when they are she was informed her blood glucose was 461 and she needed to go to the emergency department for evaluation. Upon arrival to the emergency department patient underwent full evaluation. Labs completed and reviewed. CBC showing no significant abnormalities. VBG showing a pH of 7.43, pCO2 of 31, and a bicarb of 20. BMP unremarkable with the exception of hyperglycemia with glucose of 420. Lactic acid 1.2. Urinalysis was positive for glucose negative for ketones or blood. Acetone was negative. Patient was admitted under our services to observation unit for newly diagnosed diabetes mellitus and persistent vulvovaginal candidiasis. The gas leak inspector was consulted for persistent and recurrent vulvovaginal candidiasis. Patient was started on Levemir 10 units daily along with NovoLog sliding scale. Blood glucose levels improving overnight with morning glucose of 265. Physical exam: Vital signs reviewed and stable. General: Nontoxic, no distress and appears stated age. Obese. Derm: Skin warm and dry, normal coloration for ethnicity. Head: Atraumatic, normocephalic and symmetric. Eyes: EOMs intact, no lid lag, and anicteric sclera Mouth: no lip lesions, mucus membranes moist Cardiovascular: regular rate and rhythm with normal S1S2, no murmur, positive posterior tibial pulses bilaterally, and cap refill < 2 seconds. Lungs: Respirations even, regular, and unlabored on room air. Lungs CTA bilaterally, no rhonchi, no rales, no wheezing, and no accessory muscle usage. Abdominal/GI: Obese abdomen soft, nontender to palpation, no guarding, no appreciable organomegaly. Ext: ROM intact. No gross muscle atrophy, no edema, no contractures Neuro: Speech clear, face symmetrical and CN II-XII grossly intact with no noted focal neuro deficits Psych: Alert and oriented to person, place, time, and situation. Appropriate and pleasant affect. Assessment and Plan of Care: Newly diagnosed type 2 diabetes mellitus with hyperglycemia -Hemoglobin A1c resulting at 13.3%. -Prescription sent for metformin 500 mg twice a day and Semaglutide 3 mg daily to pharmacy, per case management patient requires preauthorization and preauthorization sent for these medications. If patient does not receive authorization from insurance company she will need to be discharged on insulin secondary to her hemoglobin A1c of 13.3%. -Patient was started on Levemir 10 units daily along with NovoLog sliding scale and Blood glucose levels improving overnight with morning glucose of 265. -Extensive diabetes education provided and discussed with both patient and patient's . Persistent and recurrent vulvovaginal candidiasis -Likely resulting from uncontrolled/unmanaged hyperglycemia resulting from diabetes mellitus. Patient is newly diagnosed diabetic. -The gas leak inspector was consulted for persistent and recurrent vulvovaginal candidiasis. -Patient received one dose of Diflucan 150 mg and will plan to repeat every 72 hours 3 doses for recurrent vulvovaginal candidiasis. Hyperlipidemia, newly diagnosed -Lipid profile showing triglycerides of 266, total cholesterol 244, LDL of 154, VLDL of 53.20 and low HDL of 36.7. -Patient started on atorvastatin 40 mg daily. Morbid obesity with BMI of 47.9 kg/m -Recommend outpatient structured weight loss program CODE STATUS: Full code DVT prophylaxis: Heparin Discussed with: Patient, patient's , case repairer and RN Anticipated discharge date: Likely tomorrow morning Anticipated discharge place: Home Patient was seen independently by Nurse Pracitioner. This document was prepared using [employer] dictation software. Please allow for errors in storeroom attendant, while rare they do occur. Objective - Vital Signs Vital signs: Vital Signs Temp 98.1 F 12/21/22 07:25 Pulse 94 12/21/22 07:25 Resp 16 12/21/22 07:25 BP 137/83 12/21/22 07:25 Pulse Ox 98 12/21/22 07:25 FiO2 Intake & Output 12/20/22 12/21/22 12/21/22 18:59 06:59 18:59 Intake Total 1320 Balance 1320 Weight 142.882 kg Intake: Intake, IV Titration 200 Amount Magnesium Sulfate-D5w Pmx 200 1 gm In Dextrose/Water 1 100ml.bag @ 100 mls/hr IVPB Q1H HYACINTH Rx#: [id number] Oral 1120 Other: # Voids 1 2 - Labs CBC & Chem 7: 12/19/22 15:49 12/20/22 08:39 Labs: Abnormal Lab Results - Last 24 Hours (Table) 12/20/22 12/20/22 12/20/22 Range/Units 11:15 16:37 21:14 POC Glucose (mg/dL) 231 H 218 H 269 H (70-110) mg/dL 12/21/22 Range/Units 06:25 POC Glucose (mg/dL) 205 H (70-110) mg/dL
--- NOTE | 2022-12-21 10:48 | P.DS ---
Providers Date of admission: 12/19/22 18:38 Expected date of discharge: 12/21/22 Attending physician: Tonny Duarte MD Consults: 12/20/22 00:12 Consult Physician Urgent Consulting Provider: Radha Webb Consult Reason/Comments: fungal infection Do you want consulting provider notified?: Yes Primary care physician: Stated None Hospital Course: Discharge Diagnosis: Newly diagnosed type 2 diabetes mellitus with hyperglycemia. Hemoglobin A1c resulting at 13.3%. Patient discharged home on metformin 500 mg twice a day and Semaglutide 3 mg daily. Patient discharged home with glucometer and diabetes testing supplies and Extensive diabetes education provided and discussed with both patient and patient's . Persistent and recurrent vulvovaginal candidiasis. Likely resulting from uncontrolled/unmanaged hyperglycemia resulting from diabetes mellitus. Patient was evaluated by ANNUAL GIVING DIRECTOR for recurrent vulvovaginal candidiasis and she prescribed Monistat cream for excoriated areas. Patient received one dose of Diflucan 150 mg and will plan to repeat every 72 hours 3 doses for recurrent vulvovaginal candidiasis. Hyperlipidemia, newly diagnosed. Lipid profile showing triglycerides of 266, total cholesterol 244, LDL of 154, VLDL of 53.20 and low HDL of 36.7. Patient started on atorvastatin 40 mg daily. Hypomagnesemia, replaced Morbid obesity with BMI of 47.9 kg/m. Recommend outpatient structured weight loss program Hospital Course: Patient is a very pleasant 47-year-old female with no previous known past medical history. She presented to the emergency department from urgent care secondary to concerns of newly diagnosed diabetes mellitus. Patient reports she initially presented to the urgent care secondary to persistent yeast infections and when they are she was informed her blood glucose was 461 and she needed to go to the emergency department for evaluation. Upon arrival to the emergency department patient underwent full evaluation. Labs completed and reviewed. CBC showing no significant abnormalities. VBG showing a pH of 7.43, pCO2 of 31, and a bicarb of 20. BMP unremarkable with the exception of hyperglycemia with glucose of 420. Lactic acid 1.2. Urinalysis was positive for glucose negative for ketones or blood. Acetone was negative. Patient was admitted under our services to observation unit for newly diagnosed diabetes mellitus and persistent vulvovaginal candidiasis. The resolution rep was consulted for persistent and recurrent vulvovaginal candidiasis. Patient was placed on sliding scale during hospitalization. Hemoglobin A1c resulting at 13.3%. Insurance authorization was obtained for Semaglutide. Patient being discharged home on metformin 500 mg twice a day and Semaglutide 3 mg daily. Patient discharged home with glucometer and diabetes testing supplies and Extensive diabetes education provided and discussed with both patient and patient's . Patient educated on importance on the lifestyle changes and diet modifications. She has also been started on atorvastatin 40 mg daily as lipid profile revealed elevated triglycerides of 266, total cholesterol 244, LDL of 154, VLDL of 53.20 and low HDL of 36.7. Patient to follow-up with PCP and establish care with regional company hazmat tanker driver. Physical exam: Vital signs reviewed and stable. General: Nontoxic, no distress and appears stated age. Obese. Derm: Skin warm and dry, normal coloration for ethnicity. Head: Atraumatic, normocephalic and symmetric. Eyes: EOMs intact, no lid lag, and anicteric sclera Mouth: no lip lesions, mucus membranes moist Cardiovascular: regular rate and rhythm with normal S1S2, no murmur, positive posterior tibial pulses bilaterally, and cap refill < 2 seconds. Lungs: Respirations even, regular, and unlabored on room air. Lungs CTA bilaterally, no rhonchi, no rales, no wheezing, and no accessory muscle usage. Abdominal/GI: Obese abdomen soft, nontender to palpation, no guarding, no appreciable organomegaly. Ext: ROM intact. No gross muscle atrophy, no edema, no contractures Neuro: Speech clear, face symmetrical and CN II-XII grossly intact with no noted focal neuro deficits Psych: Alert and oriented to person, place, time, and situation. Appropriate and pleasant affect. A total of 33 minutes of time were spent preparing this complex discharge summary. Pt was discharged on 12/21/22 at 10:51 AM Patient was seen independently by Nurse Practitioner. This document was prepared using [employer] dictation software. Please allow for errors in hydrogenation still operator while rare they do occur. Umesh Allen NP rendered care for this patient independently, reviewed the fi ndings and plan as documented in the note above. I did not physically speak with or examine the patient on this date. Patient Condition at Discharge: Stable Plan - Discharge Summary Discharge Rx Participant: Yes New Discharge Prescriptions: New Fluconazole [Diflucan] 150 mg PO Q72H #2 tab metFORMIN HCL [Glucophage] 500 mg PO BID 30 Days #60 tab Semaglutide [Rybelsus] 3 mg PO DAILY 30 Days #30 tab Atorvastatin [Lipitor] 40 mg PO DAILY 30 Days #30 tab No Action L.acidoph,Paracasei, B.lactis [Probiotic] 1 cap PO HS Otc Sleep Aid (Unknown) 1 cap PO HS Cetirizine HCl [Zyrtec] 10 mg PO HS Naproxen Sodium [Aleve] 220 mg PO HS Docusate [Colace] 100 mg PO HS Omeprazole Magnesium [PriLOSEC OTC] 20 mg PO HS Discharge Medication List Cetirizine HCl [Zyrtec] 10 mg PO HS 12/19/22 [History] Docusate [Colace] 100 mg PO HS 12/19/22 [History] L.acidoph,Paracasei, B.lactis [Probiotic] 1 cap PO HS 12/19/22 [History] Naproxen Sodium [Aleve] 220 mg PO HS 12/19/22 [History] Omeprazole Magnesium [PriLOSEC OTC] 20 mg PO HS 12/19/22 [History] Otc Sleep Aid (Unknown) 1 cap PO HS 12/19/22 [History] Atorvastatin [Lipitor] 40 mg PO DAILY 30 Days #30 tab 12/20/22 [Rx] Semaglutide [Rybelsus] 3 mg PO DAILY 30 Days #30 tab 12/20/22 [Rx] metFORMIN HCL [Glucophage] 500 mg PO BID 30 Days #60 tab 12/20/22 [Rx] Fluconazole [Diflucan] 150 mg PO Q72H #2 tab 12/21/22 [Rx] Follow up Appointment(s)/Referral(s): Huseyin Wong MD [REFERRING] - 1-2 days (Contact regarding appointment with regional company hazmat tanker driver) Truman Patel MD [STAFF PHYSICIAN] - 1 Week (Please call for appointment.) De Stubbs MD [REFERRING] - 1 Week (Please call for appointment) Patient Instructions/Handouts: Type 2 Diabetes in Adults: New Diagnosis (DC), Yeast Infection (GEN), Basic Carbohydrate Counting (DC), Meal Planning with the Plate Method (DC), Hyperlipidemia (DC) Activity/Diet/Wound Care/Special Instructions: Activity: As tolerated. Take breaks as needed. Diet: Heart healthy and carb consistent diet. Avoid salts, or foods with hidden salts such as canned or boxed foods and frozen dinners. Extra salt makes your heart work harder and traps the fluid in your body for longer. Special Instructions: Take all of your medications as directed and remember to keep all of your doctor's appointments and follow-up as needed. You will need to monitor your blood glucose levels daily and document these findings in a daily log/journal to bring with you to your next doctor's appointment. Thank you for allowing us to participate in your care, it was truly a pleasure having you for our patient!!! Discharge/Stand Alone Forms: Work/Release Restrictions Form Discharge Disposition: HOME SELF-CARE
[2022-12-21 11:35] LABS: Glucose,Whole Blood 238 mg/dL (70-110)
[2022-12-22] MEDS ORDERED: FLUCONAZOLE 150 MG TAB PO ONE (09:05)
== END 2022-12-21 13:27 | disposition home or self-care (01) ==
LOC: EC 14:52 → 4SSUR 18:38
PROVIDERS: ADMIT Family Medicine; ATTEND Family Medicine
DX: E11.65 Type 2 diabetes mellitus with hyperglycemia (principal); B37.32 Chronic candidiasis of vulva and vagina; E28.2 Polycystic ovarian syndrome; E66.01 Morbid (severe) obesity due to excess calories; E83.42 Hypomagnesemia; E78.1 Pure hyperglyceridemia; K21.9 Gastro-esophageal reflux disease without esophagitis; Z79.899 Other long term (current) drug therapy; Z88.1 Allergy status to other antibiotic agents; Z91.040 Latex allergy status; Z68.42 Body mass index [BMI] 45.0-49.9, adult; Z79.84 Long term (current) use of oral hypoglycemic drugs
CPT/HCPCS: 96365 ×2; 96366 ×2; 96372; 96375; 96361; 99285; 36415; 80061; 80053; 80048; 82803; 82009; 83605; 83735 ×2; 84100; 85025; 81003; 83036; G0378 ×3; J1200; J0780; J3475; J1885; J1644